=== PATIENT | male | born 1955 ===

== ENCOUNTER 2018-11-20 08:52 | Day surgery (SDC) | payer OTHER ==
[2018-11-20 09:30] VITALS: BMI 26.6
[2018-11-20] MEDS ORDERED: Lactated Ringer's 500 ML IV ONE (10:30)
--- NOTE | 2018-11-20 10:34 | CP.SDSHP ---
Same Day Surgery H & P - History Proposed Procedure: endoscopy Pre-Op Diagnosis: epig pain, reflux - Previous Medical/Surgical History Cardiac: Hypertension, ASHD/CAD Endocrine/Metabolic: Diabetes - Allergies Allergies: Allergies Iodine and Iodide Containing Produc Allergy (Verified 12/08/15 07:44) RASH shrimp Allergy (Verified 11/24/15 07:24) RASH - Physical Exam Vital Signs: Vital Signs 11/20/18 09:19 Temperature 97.8 F Pulse Rate 80 Respiratory 20 Rate Blood Pressure 130/80 O2 Sat by Pulse 97 Oximetry Mental Status: Alert & Oriented x3 Neuro: WNL Heart: WNL Lungs: WNL GI: WNL - Impression Impression: gastritis, esophagitis Pt. Evaluated Today:Candidate for Anesthesia & Procedure: Yes - Date & Time Date: 11/20/18 Time: 10:15 Short Stay Discharge - Short Stay Discharge Admitting Diagnosis/Reason for Visit: GASTRITIS Disposition: HOME/ ROUTINE
[2018-11-20] MEDS ORDERED: Propofol 10 mg/ml Inj (20 ML) ONE (10:40)
[2018-11-20 11:57] VITALS: TEMP 98
[2018-11-20 12:10] VITALS: BP 118/67; PULSE 70; RESP 76; O2SAT 99
== END 2018-11-20 11:45 | disposition home or self-care (01) ==
LOC: C.ENDO 08:52
PROVIDERS: ATTEND Internal Medicine Gastroenterology
DX: K29.50 Unspecified chronic gastritis without bleeding (principal); K21.0 Gastro-esophageal reflux disease with esophagitis; R10.13 Epigastric pain; I10 Essential (primary) hypertension; I25.10 Atherosclerotic heart disease of native coronary artery without angina pectoris; E11.9 Type 2 diabetes mellitus without complications
CPT/HCPCS: 43239; 82948; 88305; 88312; 88313; 88342; J2001; J2704; J7120